=== PATIENT | male | born 1995 | race Caucasian/White ===

== ENCOUNTER 2022-09-25 06:03 | Emergency (ER) | payer BC ==
[~2022-09-25] VITALS: Ht 182.9 cm; Wt 104.5 kg
[2022-09-25 06:24] VITALS: BP 129/78; TEMP 98.7
[2022-09-25 07:04] LABS: MUCOUS Present (NOT PRESENT); SQUAMOUS EPITHELIAL 0-2 /hpf (0-10); URINE BACTERIA None Seen /hpf (NONE SEEN); URINE RBC 0-2 /hpf (0-2); URINE WBC 0-2 /hpf (0-2)
[2022-09-25 07:08] LABS: COLLECTION METHOD CLEAN CATCH; PH 5.5 (5.0-8.5); URINE APPEARANCE Clear (CLEAR/HAZY); URINE COLOR Yellow (YELLOW); URINE GLUCOSE Negative (NEGATIVE); URINE KETONE TRACE (NEGATIVE); URINE PROTEIN(semi-quant) Negative (NEGATIVE); URINE UROBILINOGEN 0.2 E.U/dL (0.2-1.0)
[2022-09-25 07:09] LABS: URINE BLOOD Negative (NEGATIVE); URINE NITRATE Negative (NEGATIVE)
[2022-09-25 07:50] VITALS: PULSE 92
[2022-09-25] MEDS ORDERED: ASPERCREME1 EACH TP ×3 (07:53→08:10)
[2022-09-25] MEDS ORDERED: FLEXERIL 1010 MG/TAB PO ×3 (08:01→08:10)
== END 2022-09-25 08:04 | disposition home or self-care (01) ==
LOC: COL.ER 06:03
PROVIDERS: Emergency Medicine
DX: M62.838 Other muscle spasm (principal); M54.9 Dorsalgia, unspecified; F17.210 Nicotine dependence, cigarettes, uncomplicated; W01.190A Fall on same level from slipping, tripping and stumbling with subsequent striking against furniture, initial encounter
CPT/HCPCS: J1885